=== PATIENT | male | born 1960 | race Caucasian/White ===

== ENCOUNTER → 2023-11-21 15:39 | Outpatient (CLI) | payer OTHER, SELFPAY ==
--- NOTE | 2023-11-21 15:46 | DI.RAD.S_ITS ---
PROCEDURE: XR CERVICAL SPINE 2V OR 3V INDICATIONS: ARTHRITIS TECHNIQUE: Three views (s) of the cervical spine were acquired. COMPARISON: None. FINDINGS: Cervical spine curvature and alignment: Normal. Bones: There are no osseous abnormalities. Disc spaces: Mild C2-3 and C3-4 degenerative disc disease appreciated. Soft tissues: No soft tissue swelling, calcification or mass. IMPRESSION: Mild degeneration Dictated by: Nick Avina M.D. on 11/24/2023 at 7:49 Approved by: Nick Avina M.D. on 11/24/2023 at 7:50
--- NOTE | 2023-11-21 15:46 | DI.RAD.S_ITS ---
PROCEDURE: XR CHEST 2V INDICATIONS: BRONCHITIS TECHNIQUE: 2 views of the chest were acquired. COMPARISON: None. FINDINGS: Heart, mediastinum and pulmonary vascular: Heart is normal in size and configuration. Mediastinum is unremarkable. Pulmonary vascular is normal. Lungs: Clear Pleural spaces: Normal-no effusions or pneumothorax. Bones and soft tissues: Normal IMPRESSION: Normal chest. Dictated by: Nick Avina M.D. on 11/24/2023 at 7:46 Approved by: Nick Avina M.D. on 11/24/2023 at 7:48
== END ==
LOC: RAD 15:44
PROVIDERS: PCP Nurse Practitioner; Referring Provider Chiropractor; Visit Provider Chiropractor
DX: M50.31 Other cervical disc degeneration, high cervical region (principal); M13.80 Other specified arthritis, unspecified site; J40 Bronchitis, not specified as acute or chronic
CPT/HCPCS: 71046; 72040

== ENCOUNTER → 2024-03-29 15:42 | Outpatient (CLI) | payer OTHER, SELFPAY ==
--- NOTE | 2024-03-29 15:45 | DI.RAD.S_ITS ---
PROCEDURE: XR KNEE LT 3V INDICATIONS: ARTHRITIS TECHNIQUE: 3 views of the knee were acquired. COMPARISON: [facility], , XR KNEE 4+ VIEWS LEFT, 11/04/2023, 15:09. FINDINGS: Bones: No fractures or dislocations. No suspicious bony lesions. Tricompartmental arthritic change overall [id number]. Periarticular osteophytes are present. No erosions. Appearance is stable compared to prior exam. Soft tissues: Moderate joint effusion. No suspicious soft tissue calcifications. IMPRESSION: Tricompartmental arthritic change as above. Dictated by: Myra Villagran M.D. on 03/30/2024 at 16:04 Approved by: Myra Villagran M.D. on 03/30/2024 at 16:05
--- NOTE | 2024-03-29 15:46 | DI.RAD.S_ITS ---
PROCEDURE: XR ANKLE LT 2V INDICATIONS: ARTHRITIS TECHNIQUE: 2 views of the ankle were acquired. COMPARISON: None. FINDINGS: Bones: No fractures or dislocations. Ankle mortise is normally aligned. No suspicious bony lesions. Minimal midfoot arthritic change. Soft tissues: No tibiotalar joint effusion. Achilles tendon appears normal. IMPRESSION: Minimal mid foot degenerative change. Dictated by: Myra Villagran M.D. on 03/30/2024 at 16:05 Approved by: Myra Villagran M.D. on 03/30/2024 at 16:09
--- NOTE | 2024-03-29 15:46 | DI.RAD.S_ITS ---
PROCEDURE: XR KNEE RT 3V INDICATIONS: ARTHRITIS TECHNIQUE: 3 views of the knee were acquired. COMPARISON: [facility], , XR KNEE 4+ VIEWS RIGHT, 11/04/2023, 15:09. FINDINGS: Bones: No fractures or dislocations. No suspicious bony lesions. [id number] tricompartmental arthritic change chondrocalcinosis. Periarticular osteophytes. No erosions. Overall appearance is stable. Soft tissues: Moderate joint effusion. No suspicious soft tissue calcifications. IMPRESSION: Moderate effusion. Stable tricompartmental arthritic change. Dictated by: Myra Villagran M.D. on 03/30/2024 at 16:05 Approved by: Myra Villagran M.D. on 03/30/2024 at 16:05
--- NOTE | 2024-03-29 15:47 | DI.RAD.S_ITS ---
PROCEDURE: XR ANKLE RT 2V INDICATIONS: ARTHRITIS TECHNIQUE: 2 views of the ankle were acquired. COMPARISON: None. FINDINGS: Bones: No fractures or dislocations. Ankle mortise is normally aligned. No suspicious bony lesions. Minimal to mild midfoot degenerative change. Rounded ossifications are present anterior to the talus likely related to prior injury or degenerative change. Soft tissues: No tibiotalar joint effusion. Achilles tendon appears normal. IMPRESSION: Midfoot degenerative changes above. Dictated by: Myra Villagran M.D. on 03/30/2024 at 16:09 Approved by: Myra Villagran M.D. on 03/30/2024 at 16:10
== END ==
PROVIDERS: Referring Provider Chiropractor; Visit Provider Chiropractor
DX: M13.80 Other specified arthritis, unspecified site (principal); M25.461 Effusion, right knee; M25.462 Effusion, left knee
CPT/HCPCS: 73562; 73600